=== PATIENT | female | born 1975 | race Two or more races ===

== ENCOUNTER → 2024-03-24 | Outpatient (CLI) | payer MEDICAID ==
[2024-03-24 10:35] VITALS: BP 126/80; PULSE 55; RESP 16
--- NOTE | 2024-03-24 10:39 | DVHCARD ---
Cardiology Stress Test [place] Treadmill Stress Test [place] Referring MD: MD Trey Protocol: Paolo (without cardiolite) Reason for referral: Chest Pain Target heart Rate:@85%: 147 Percent MPHR: 174 METS: 10.10 Resting Heart rate: 55 Resting Blood Pressure: 126/80 Exercise Heart Rate: 179 Exercise Blood Pressure: 209/86 Reason for Termination of Test: Completion of Protocol Baseline EKG: Sinus bradycardia with peaked T-waves Stress EKG: Sinus tachycardia w/o ST segment changes Functional Capacity: Good Normal Heart Rate Response: Adequate Blood Pressure Response: Hypertensive Clinical response: Non-ischemic Arrhythmia?: No Cardiolite Injected?: No ST-T Changes: Non/Minimal Probability of Inducible Ische: Low Comments: Uneventful Paolo protocol Date of Service: Mar 24, 2024 Billing Provider: BEN CARNES Cardiology Common Codes: PROCEDURE ONLY Treadmill w/o Cardiolite: [id number], INTERP, RPT BEN CARNES Mar 24, 2024 10:39
== END | disposition home or self-care (01) ==
LOC: XYW 09:10
PROVIDERS: ATTEND Internal Medicine
DX: R00.0 Tachycardia, unspecified (principal); R00.1 Bradycardia, unspecified; R07.9 Chest pain, unspecified
CPT/HCPCS: 93017